=== PATIENT | female | born 2000 | race African-American/Black ===

== ENCOUNTER → 2021-12-02 | Outpatient (CLI) | payer OTHER ==
[~2021-12-02] MED LIST: ISOVUE-300 61% 50ML VIAL As Ordered ONE; LIDOCAINE 1% MDV 20ML VIAL As Ordered ONE; PROHANCE 279.3MG/ML 5ML VIAL As Ordered ONE
== END ==
LOC: M RADPRO 06:38
PROVIDERS: ATTEND Orthopaedic Surgery Hand Surgery
DX: R93.7 Abnormal findings on diagnostic imaging of other parts of musculoskeletal system (principal); M25.531 Pain in right wrist
CPT/HCPCS: 25246; 73223; 77002; A9576; Q9967

== ENCOUNTER → 2022-02-02 | Outpatient (CLI) | payer OTHER | LOC: M RADPRO 07:17 | PROVIDERS: ATTEND Orthopaedic Surgery Hand Surgery | DX: R93.7 Abnormal findings on diagnostic imaging of other parts of musculoskeletal system (principal); M25.532 Pain in left wrist | CPT/HCPCS: 25246; 73223; 77002; A9576; Q9967 ==